=== PATIENT | female | born 1935 | race Caucasian/White ===

== ENCOUNTER 2017-03-04 11:47 | Inpatient (IN) | payer MEDICARE, OTHER ==
[~2017-03-04] VITALS: Ht 152.4 cm; Wt 56.2 kg
--- NOTE | ~2017-03-04 | CN ---
PATIENT NAME:CAPRICE KONG MEDICAL RECORD: [id number] : 31 LOCATION:D. D.2135 ADMIT DATE: 03/04/17 ACCOUNT: [id number] CONSULTING PHYSICIAN: DANIELA BELLE MD REFERRING PHYSICIAN: NATHALY JONES MD, TASHA K 03/05/17 0816: Chief Complaint - AFIB Objective Data History of Present Illness: 82 YEAR OLD FEMALE W HISTORY OF AFIB RECENTLY STARTED ON CORDARONE/XARELTO. ACCORDING TO HER DAUGHTER SHE HAS BEEN ON XARELTO SINCE 02/02/17. SHE HAS SEEN DR CHAUHAN IN CLINIC FOR HER AFIB. HER CORDARONE WAS INCREASED TO TWICE A DAY DOSING ALONG W METOPROLOL FOR RATE CONTROL BUT PATIENT BECAME WEAK AND DAUGHTER FELT IT WAS TOO BIG A DOSE OF CORDARONE SO SHE DECREASED IT TO ONCE A DAY AGAIN. SHE PRESENTED TO ED W WORSENING SOB/COUGH AND TACHYCARDIA. SHE WAS NOTED TO HAVE RML PNEUMONIA AND AFIB W RATE 138. WE HAVE BEEN CONSULTED FOR MEDICAL RECOMMENDATIONS. Neurological Hx: WEAKNESS EENT Hx: CATARACTS, GLASSES Endocrine Hx: HEPATITIS Cardiovascular Hx: HTN, CHF, ATRIAL FIB Respiratory Hx: PNEUMONIA Cancer Hx: KIDNEY Immune Disorders: NONE Gastrointestinal Hx: ACID REFLUX Allergies Coded Allergies: digoxin (. 03/04/17) ibuprofen (From ADVIL) (. 03/04/17) naproxen (From ALEVE) (. 03/04/17) Medications Reported Medications Calcium Carbonate/Vitamin D3 (Calcium 250 MG + VIT D TB) 250 MG PO DAILY Calcium Carb/Vit D3 600 MG/400 IU (Calcium 600MG Plus Vitamin D) 1 TAB PO DAILY Rivaroxaban (XARELTO) 20 MG PO DAILY@1700 Metoprolol Tartrate 25 MG PO DAILY Amiodarone (Pacerone) 100 MG PO DAILY Family Hx Parent: CARDIOVASCULAR DISEASE, DIABETES Sibling: CARDIOVASCULAR DISEASE Natural Child: NONE KNOWN Social History Smoking Status: NEVER TOBACCO USER Alcohol: No Recreational Drug Use: No CONSULT REPORT [id number] DILANCAPRICE Review of Systems Review of Systems GEN fatigue, weakness MAINTENANCE MGR neg headache, neg dizziness CV chest pain, palpitations, orthopnea ID chills GI neg nausea, neg abdominal pain neg weber HEME neg hemoptysis, neg hematuria ENDO neg thirsty, neg sweaty Skin Warm, Dry, Intact Pulm SOB, Cough, Sputums Musc/skel neg pain BMI: 21.04138 Physical Exam - Vital Signs Date Time Temp Pulse Resp B/P B/P Pulse O2 O2 Flow FiO2 Mean Ox Delivery Rate 03/05 0743 99 03/05 0739 97.5 90 16 88/60 99 NC 3 03/05 0454 97.3 100 AH 28 100/62 96 03/05 0103 97.3 120 CH 30 86/45 98 2 03/04 2153 97 General Appearance: alert, awake HEENT: pupils reactive to light, ex. occ. movements intact Neck: full range of motion, no JVD Cardiovascular Assessment: normal cap refill, irregular rate and rhythm, irregularly irregular Peripheral Pulses: Rt Brachial present, Lt Brachial present, Rt Radial present, Lt Radial present Resp Assessment: no acute distress, wheezes, rales Abdomen/GI Assessment: soft, nontender, normal bowel sounds Neur/MAINTENANCE MGR: alert Extremity Assessment: normal inspection, no edema Skin: Warm, Dry, Intact NUTRITION: Diet Plan - 1.AFIB- ON CORDARONE/METOPROLOL /XARELTO 2.RML PNEUMONIA 3.HTN-BP LIABLE ECHO PENDING , DR BELLE/MARY [facility] CONSULT REPORT [id number] CAPRICE KONG TROY R 03/05/17 0845: Plan - At this point I would recommend continued rate control pt's rate is relatively physiologic at this point check echo for left atrial size if we have continued difficulty with rate control may consider cardioversion given the rate is mostly controlled would not likely provide further hemo support at this point although creat is 2.2 a small iv dose dig may be helpful if needed will not at this point, but consider if bp still low would mildly hydrate at this point to see if helps with bp possibly early sepsis at 0834 at 0848 03/08/2017 Copied from P.Doc documentation, mayela. DANIELA BELLE MD at 1252 CC: [id number] DICTATION DATE: 03/05/17 0816 PARKER: MORGAN 03/08/17 1018 ADM IN [facility] [address] [place] [address]
--- NOTE | ~2017-03-04 | EC ---
PATIENT:CAPRICE KONG DATE OF SERVICE: 03/04/17 SEX: F MEDICAL RECORD: [id number] DATE OF : 31 LOCATION:D.M2 D.213 AGE OF PATIENT: 82 ADMISSION DATE: 03/04/17 REFERRING PHYSICIAN: INTERPRETING PHYSICIAN: DANIELA BELLE MD ECHOCARDIOGRAM REPORT ECHO CHARGES 4 ECHO COMPLETE CLINICAL DIAGNOSIS: PULMONARY EDEMA ECHOCARDIOGRAPHIC MEASUREMENTS (adult normal given) AC root (d.<3.7cm) 2.9 cm LV Septum d (<1.2 cm> 0.7 cm Valve Excursion 1.8 cm LV Septum (systole) 1.3 cm Left Atria (s.<4.0cm> 4.9 cm LVPW d(<1.2cm) 0.9 cm RV (d.<2.3cm) 3.2 cm LVPW (sytole) 1.2 cm LV diastole(<5.6CM) 4.1 cm MV E-F(>70mm/sec) cm LV systole 2.9 cm LVOT Diameter 1.9 cm MV exc.(>10mm) cm Est.ejection fraction (50-75%) % Pericardial Effusion N DOPPLER: LVIT cm/sec A cm/sec E 92.0 cm/sec LA cm/sec RVSP 59.0 mmHg LVOT 53.0 cm/sec AOP1/2T 495.0m/s Asc. Ao 104 cm/sec RVOT 49.0 cm/sec RA cm/sec PA 66.0 cm/sec AV Gradient Peak 4.3 mmHg AV Mean 1.9 mmHg AV Area 1.4 cm MV Gradient Peak 7.5 mmHg MV Mean 2.3 mmHg MV Area cm COMMENTS: Loan Counselor: Kalie HAYESOE Adhesive Bandage Making Operator: 4 Dr. Belle TAPE# PACS DATE OF SERVICE: 03/05/2017 PROCEDURE: Transthoracic echocardiogram. FINDINGS: 1. The basilar portions of the left ventricle are preserved. There is normal left ventricular mass. The overall function is difficult to gauge because limited views of the endocardium. It appears there is anterior apical and inferior apical hypokinesis with preserved mid and basilar segments could be consistent with a prior infarction or possible apical ballooning syndrome. The ECHOCARDIOGRAM REPORT [id number] CAPRICE KONG overall ejection fraction is 25% to 30%. 2. The left atrium is severely dilated at 4.9 cm. 3. The aortic valve is sclerotic without stenosis and mild aortic regurgitation. 4. The mitral valve has mild to moderate mitral regurgitation, structurally appears to be normal, was not well visualized. 5. Tricuspid valve has moderate to severe tricuspid regurgitation. RVSP is 60 to 65 mmHg. 6. The right ventricle is dilated. 7. The right atrium is dilated. CONCLUSIONS: The patient has evidence of either an apical ballooning syndrome or potentially a prior infarction. Overall, ejection fraction is 25% to 30%. There is evidence of pulmonary hypertension and severe tricuspid regurgitation. TRANSINT:[id number] Voice Confirmation ID: [id number] DOCUMENT ID: [id number] 03/08/2017 Edited to correct date of service, dm. DANIELA BELLE MD at 1208 CC: [id number] DICTATION DATE: 03/06/17 1110 POCKET CLOSER: 03/06/17 1248 DIS IN 03/14/17 [place] [id number] [place] [address]
[2017-03-04 12:24] LABS: ALBUMIN 2.9 g/dL (3.4-5.0); ANION GAP 16.5 mmol/L (8-16); BILIRUBIN - TOTAL 0.64 mg/dL (0.2-1.3); CALCIUM 9.5 mg/dL (8.5-10.1); CREATININE - SERUM 1.5 mg/dL (0.6-1.3); POTASSIUM - SERUM 5.5 mmol/L (3.5-5.1); PROTEIN - SERUM 6.6 g/dL (6.4-8.2)
[2017-03-04 12:29] LABS: HEMATOCRIT 44.3 % (36.0-48.0); HEMOGLOBIN 14.3 g/dL (12-16); MCH 25.6 pg (26.0-34.0); MCHC 32.3 g/dL (31.0-37.0); MCV 79.2 fL (80.0-100.0); MEAN PLATELET VOLUME 10.7 fL (7.4-10.4); PLATELET COUNT 292 10x3/uL (130-400); RBC 5.59 10x6/uL (4.00-5.40); RDW 16.7 % (11.5-14.5); WBC 28.3 10x3/uL (4.8-10.8)
[2017-03-04 12:43] LABS: TROPONIN-I 0.241 ng/mL (0.000-0.060)
[2017-03-04 12:48] LABS: BASOPHILS 1 % (0-2); LYMPHOCYTES 51 % (15-50); MONOCYTES 4 % (2-11); NEUTROPHILS 43 % (40-80); PLATELET ESTIMATE NORMAL
[2017-03-04 13:45] LABS: APPEARANCE CLOUDY (CLEAR); BILIRUBIN NEGATIVE (NEGATIVE); COLOR DK YELLOW (YELLOW); GLUCOSE NEGATIVE (NEGATIVE); KETONE NEGATIVE (NEGATIVE); NITRITE NEGATIVE (NEGATIVE); PROTEIN 3+ mg/dL (NEGATIVE); SPECIFIC GRAVITY 1.025 (1.005-1.020); UROBILINOGEN NORMAL (NORMAL)
[2017-03-04 13:50] LABS: BACTERIA MODERATE /hpf (NONE SEEN); EPITHELIAL CELLS 0-5 /hpf (0-5); HYALINE CAST 0-5 /lpf (NONE SEEN); MUCUS <1+ /lpf (NONE SEEN)
[2017-03-04] MEDS ORDERED: CALCIUM 250+D T1 TAB PO (19:04)
[2017-03-04] MEDS ORDERED: CALCIUM 600+D T1 TA1 PO (19:05)
[2017-03-04] MEDS ORDERED: XARELTO20 MG PO (19:06)
[2017-03-04] MEDS ORDERED: PACERONE100 MG PO (19:08)
[2017-03-04] MEDS ORDERED: METOPROLOL TART25 MG PO (19:08)
[2017-03-05 01:03] VITALS: BP 86/45
[2017-03-05 04:23] VITALS: BMI 21.5
[2017-03-05 04:54] VITALS: BP 100/62
[2017-03-05 06:02] LABS: BASOPHILS 0.1 % (0-2); EOSINOPHILS 0 % (0-7); HEMATOCRIT 36.8 % (36.0-48.0); HEMOGLOBIN 11.8 g/dL (12-16); IMMATURE GRANULOCYTES 0.6 % (0-5); LYMPHOCYTES 42.1 % (15-50); MCH 25.3 pg (26.0-34.0); MCHC 32.1 g/dL (31.0-37.0); MCV 78.8 fL (80.0-100.0); MEAN PLATELET VOLUME 10.2 fL (7.4-10.4); MONOCYTES 11.5 % (2-11); NEUTROPHILS 45.7 % (40-80); PLATELET COUNT 239 10x3/uL (130-400); RBC 4.67 10x6/uL (4.00-5.40); RDW 16.6 % (11.5-14.5); WBC 27.2 10x3/uL (4.8-10.8)
[2017-03-05 07:05] LABS: ALBUMIN 2.3 g/dL (3.4-5.0); ANION GAP 15.6 mmol/L (8-16); BILIRUBIN - TOTAL 0.5 mg/dL (0.2-1.3); CALCIUM 8.2 mg/dL (8.5-10.1); CARBON DIOXIDE 24.2 mmol/L (21.0-32.0); CREATININE - SERUM 2.1 mg/dL (0.6-1.3); POTASSIUM - SERUM 4.8 mmol/L (3.5-5.1); PROTEIN - SERUM 5.5 g/dL (6.4-8.2)
[2017-03-05 07:39] VITALS: BP 88/60
[2017-03-05 11:49] VITALS: BP 96/63
[2017-03-05 14:23] VITALS: BMI 21.4
[2017-03-05 19:00] VITALS: BP 111/77
[2017-03-06] VITALS (8 sets, daily range): BP systolic 98–120; BP diastolic 61–70; Ht 152.4 cm; Wt 56.2 kg
[2017-03-06 06:51] LABS: BASOPHILS 0.1 % (0-2); HEMATOCRIT 34.5 % (36.0-48.0); HEMOGLOBIN 10.9 g/dL (12-16); IMMATURE GRANULOCYTES 0.5 % (0-5); LYMPHOCYTES 41.6 % (15-50); MCH 25.2 pg (26.0-34.0); MCHC 31.6 g/dL (31.0-37.0); MCV 79.9 fL (80.0-100.0); MEAN PLATELET VOLUME 10.3 fL (7.4-10.4); MONOCYTES 11.6 % (2-11); NEUTROPHILS 45.2 % (40-80); PLATELET COUNT 223 10x3/uL (130-400); RBC 4.32 10x6/uL (4.00-5.40); RDW 16.7 % (11.5-14.5)
[2017-03-06 06:56] LABS: ALBUMIN 2.2 g/dL (3.4-5.0); ANION GAP 16.7 mmol/L (8-16); BILIRUBIN - TOTAL 0.3 mg/dL (0.2-1.3); CALCIUM 8.3 mg/dL (8.5-10.1); CARBON DIOXIDE 23.8 mmol/L (21.0-32.0); CREATININE - SERUM 2.2 mg/dL (0.6-1.3); PHOSPHOROUS 5.6 mg/dL (2.5-4.9); POTASSIUM - SERUM 4.5 mmol/L (3.5-5.1); PROTEIN - SERUM 5.4 g/dL (6.4-8.2); VANCOMYCIN - TROUGH 15.5 ug/mL (10.0-20.0)
[2017-03-06 07:00] LABS: WBC 16.2 10x3/uL (4.8-10.8)
[2017-03-06 15:30] LABS: CREATININE - URINE 178.6 mg/dL (30-125); POTASSIUM - URINE 89.7 MMOL/L (12.0-62.0); PROTEIN - URINE 110.3 mg/dL (0.0-11.9)
[2017-03-07] VITALS: BP 80/59
[2017-03-07 04:00] VITALS: BP 100/60
[2017-03-07 06:28] LABS: BASOPHILS 0.1 % (0-2); EOSINOPHILS 0.7 % (0-7); HEMATOCRIT 36.4 % (36.0-48.0); HEMOGLOBIN 11.4 g/dL (12-16); IMMATURE GRANULOCYTES 0.4 % (0-5); LYMPHOCYTES 57.5 % (15-50); MCH 25.3 pg (26.0-34.0); MCHC 31.3 g/dL (31.0-37.0); MCV 80.7 fL (80.0-100.0); MEAN PLATELET VOLUME 10.7 fL (7.4-10.4); MONOCYTES 8.5 % (2-11); NEUTROPHILS 32.8 % (40-80); RBC 4.51 10x6/uL (4.00-5.40); RDW 16.9 % (11.5-14.5); WBC 19.3 10x3/uL (4.8-10.8)
[2017-03-07 06:52] LABS: ALBUMIN 2.3 g/dL (3.4-5.0); ANION GAP 13.9 mmol/L (8-16); BILIRUBIN - TOTAL 0.44 mg/dL (0.2-1.3); CALCIUM 8.6 mg/dL (8.5-10.1); CARBON DIOXIDE 23.7 mmol/L (21.0-32.0); CREATININE - SERUM 1.9 mg/dL (0.6-1.3); MAGNESIUM - SERUM 2.2 mg/dL (1.8-2.4); PHOSPHOROUS 4.5 mg/dL (2.5-4.9); POTASSIUM - SERUM 4.6 mmol/L (3.5-5.1); PROTEIN - SERUM 5.7 g/dL (6.4-8.2); VANCOMYCIN - RANDOM 17.1 ug/mL (10.0-20.0)
[2017-03-07 06:53] LABS: PLATELET COUNT 280 10x3/uL (130-400)
[2017-03-07 11:01] VITALS: BP 117/66
[2017-03-07 12:16] LABS: OSMOLALITY - URINE 619 (())
[2017-03-07 13:41] VITALS: BP 94/64
[2017-03-07 17:40] VITALS: BP 96/56
[2017-03-07 19:00] VITALS: BP 99/52
[2017-03-08 04:00] VITALS: BP 112/65
[2017-03-08 06:18] LABS: BASOPHILS 0.2 % (0-2); EOSINOPHILS 2.5 % (0-7); HEMATOCRIT 36.3 % (36.0-48.0); HEMOGLOBIN 11.3 g/dL (12-16); IMMATURE GRANULOCYTES 0.7 % (0-5); LYMPHOCYTES 53.6 % (15-50); MCHC 31.1 g/dL (31.0-37.0); MCV 80.3 fL (80.0-100.0); PLATELET COUNT 222 10x3/uL (130-400); RBC 4.52 10x6/uL (4.00-5.40); RDW 16.7 % (11.5-14.5); WBC 15.4 10x3/uL (4.8-10.8)
[2017-03-08 06:44] LABS: ALBUMIN 2.3 g/dL (3.4-5.0); ANION GAP 14.2 mmol/L (8-16); BILIRUBIN - TOTAL 0.35 mg/dL (0.2-1.3); CALCIUM 8.6 mg/dL (8.5-10.1); CARBON DIOXIDE 22.7 mmol/L (21.0-32.0); CREATININE - SERUM 1.6 mg/dL (0.6-1.3); MAGNESIUM - SERUM 2.2 mg/dL (1.8-2.4); PHOSPHOROUS 3.8 mg/dL (2.5-4.9); POTASSIUM - SERUM 4.9 mmol/L (3.5-5.1); PROTEIN - SERUM 5.1 g/dL (6.4-8.2)
[2017-03-08 08:47] VITALS: BP 113/72
[2017-03-08 12:33] VITALS: BP 97/74
[2017-03-08 16:28] VITALS: BP 94/70
[2017-03-08 21:44] VITALS: BP 94/68
[2017-03-09 01:15] VITALS: BP 100/64
[2017-03-09 05:58] VITALS: BP 117/70
[2017-03-09 06:22] LABS: BASOPHILS 0.3 % (0-2); EOSINOPHILS 2.1 % (0-7); HEMATOCRIT 37.7 % (36.0-48.0); HEMOGLOBIN 11.8 g/dL (12-16); IMMATURE GRANULOCYTES 2.4 % (0-5); LYMPHOCYTES 53.8 % (15-50); MCH 25.2 pg (26.0-34.0); MCHC 31.3 g/dL (31.0-37.0); MCV 80.4 fL (80.0-100.0); MONOCYTES 8.4 % (2-11); PLATELET COUNT 287 10x3/uL (130-400); RBC 4.69 10x6/uL (4.00-5.40); RDW 16.9 % (11.5-14.5); WBC 22.3 10x3/uL (4.8-10.8)
[2017-03-09 06:29] LABS: ALBUMIN 2.2 g/dL (3.4-5.0); ANION GAP 13.3 mmol/L (8-16); BILIRUBIN - TOTAL 0.4 mg/dL (0.2-1.3); CALCIUM 8.5 mg/dL (8.5-10.1); CARBON DIOXIDE 21.6 mmol/L (21.0-32.0); CREATININE - SERUM 1.4 mg/dL (0.6-1.3); POTASSIUM - SERUM 4.9 mmol/L (3.5-5.1); PROTEIN - SERUM 5.4 g/dL (6.4-8.2)
[2017-03-09 08:06] VITALS: BP 106/71
[2017-03-09 11:18] VITALS: BP 98/75
[2017-03-09 14:20] LABS: HISTOPLASMA GAL MANNAN AG SER <0.5 (<0.5 ng/mL)
[2017-03-09 15:42] VITALS: BP 97/60
[2017-03-09 19:00] VITALS: BP 119/72
[2017-03-10 04:00] VITALS: BP 111/67
[2017-03-10 07:01] LABS: HEMATOCRIT 39.7 % (36.0-48.0); HEMOGLOBIN 12.1 g/dL (12-16); MCH 24.4 pg (26.0-34.0); MCHC 30.5 g/dL (31.0-37.0); PLATELET COUNT 288 10x3/uL (130-400); RBC 4.96 10x6/uL (4.00-5.40); RDW 17.9 % (11.5-14.5); WBC 26.8 10x3/uL (4.8-10.8)
[2017-03-10 07:11] LABS: ALBUMIN 2.3 g/dL (3.4-5.0); ANION GAP 13.5 mmol/L (8-16); BILIRUBIN - TOTAL 0.36 mg/dL (0.2-1.3); CALCIUM 8.5 mg/dL (8.5-10.1); CARBON DIOXIDE 24.1 mmol/L (21.0-32.0); CREATININE - SERUM 1.6 mg/dL (0.6-1.3); POTASSIUM - SERUM 4.6 mmol/L (3.5-5.1); PROTEIN - SERUM 5.6 g/dL (6.4-8.2)
[2017-03-10 08:18] LABS: EOSINOPHILS 3 % (0-7); LYMPHOCYTES 50 % (15-50); MONOCYTES 3 % (2-11); NEUTROPHILS 39 % (40-80); PLATELET ESTIMATE NORMAL; SMUDGE CELLS 1+
[2017-03-10 08:25] VITALS: BP 101/72
[2017-03-10 11:43] VITALS: BP 111/78
[2017-03-10 15:49] VITALS: BP 124/76
[2017-03-10 19:00] VITALS: BP 122/70
[2017-03-11 04:00] VITALS: BP 136/70
[2017-03-11 05:39] LABS: BASOPHILS 0.4 % (0-2); EOSINOPHILS 1.4 % (0-7); HEMATOCRIT 37.1 % (36.0-48.0); HEMOGLOBIN 11.8 g/dL (12-16); IMMATURE GRANULOCYTES 4.5 % (0-5); LYMPHOCYTES 51.8 % (15-50); MCH 25.3 pg (26.0-34.0); MCHC 31.8 g/dL (31.0-37.0); MCV 79.4 fL (80.0-100.0); MEAN PLATELET VOLUME 9.9 fL (7.4-10.4); MONOCYTES 6.9 % (2-11); PLATELET COUNT 279 10x3/uL (130-400); RBC 4.67 10x6/uL (4.00-5.40); RDW 17.2 % (11.5-14.5); WBC 28.7 10x3/uL (4.8-10.8)
[2017-03-11 05:57] LABS: ALBUMIN 2.2 g/dL (3.4-5.0); ANION GAP 13.2 mmol/L (8-16); BILIRUBIN - TOTAL 0.42 mg/dL (0.2-1.3); CARBON DIOXIDE 24.2 mmol/L (21.0-32.0); CREATININE - SERUM 1.5 mg/dL (0.6-1.3); POTASSIUM - SERUM 4.4 mmol/L (3.5-5.1); PROTEIN - SERUM 5.4 g/dL (6.4-8.2)
[2017-03-11 07:00] VITALS: BP 104/65
[2017-03-11 21:39] VITALS: BP 112/52
[2017-03-12 05:15] LABS: BASOPHILS 0.4 % (0-2); HEMATOCRIT 38.3 % (36.0-48.0); HEMOGLOBIN 12.2 g/dL (12-16); IMMATURE GRANULOCYTES 4.1 % (0-5); LYMPHOCYTES 54.3 % (15-50); MCH 25.1 pg (26.0-34.0); MCHC 31.9 g/dL (31.0-37.0); MCV 78.8 fL (80.0-100.0); MEAN PLATELET VOLUME 9.8 fL (7.4-10.4); NEUTROPHILS 33.2 % (40-80); PLATELET COUNT 301 10x3/uL (130-400); RBC 4.86 10x6/uL (4.00-5.40); RDW 17.2 % (11.5-14.5); WBC 36.7 10x3/uL (4.8-10.8)
[2017-03-12 05:29] LABS: ALBUMIN 2.2 g/dL (3.4-5.0); ANION GAP 13.8 mmol/L (8-16); BILIRUBIN - TOTAL 0.4 mg/dL (0.2-1.3); CALCIUM 8.9 mg/dL (8.5-10.1); CARBON DIOXIDE 23.6 mmol/L (21.0-32.0); CREATININE - SERUM 1.5 mg/dL (0.6-1.3); POTASSIUM - SERUM 4.4 mmol/L (3.5-5.1); PROTEIN - SERUM 5.7 g/dL (6.4-8.2)
[2017-03-12 08:56] VITALS: BP 115/72
[2017-03-12 12:15] VITALS: BP 108/79
[2017-03-12 16:19] VITALS: BP 118/76
[2017-03-12 19:00] VITALS: BP 129/84
[2017-03-13 04:00] VITALS: BP 93/49
[2017-03-13 06:13] LABS: BASOPHILS 0.2 % (0-2); EOSINOPHILS 0.6 % (0-7); HEMATOCRIT 39.4 % (36.0-48.0); HEMOGLOBIN 12.3 g/dL (12-16); IMMATURE GRANULOCYTES 3.6 % (0-5); MCH 24.3 pg (26.0-34.0); MCHC 31.2 g/dL (31.0-37.0); MCV 77.7 fL (80.0-100.0); MEAN PLATELET VOLUME 10.3 fL (7.4-10.4); NEUTROPHILS 34.6 % (40-80); PLATELET COUNT 294 10x3/uL (130-400); RBC 5.07 10x6/uL (4.00-5.40); RDW 17.2 % (11.5-14.5); WBC 39.5 10x3/uL (4.8-10.8)
[2017-03-13 06:32] LABS: ALBUMIN 2.1 g/dL (3.4-5.0); BILIRUBIN - TOTAL 0.52 mg/dL (0.2-1.3); CALCIUM 8.9 mg/dL (8.5-10.1); CARBON DIOXIDE 24.2 mmol/L (21.0-32.0); CREATININE - SERUM 1.8 mg/dL (0.6-1.3); POTASSIUM - SERUM 4.2 mmol/L (3.5-5.1); PROTEIN - SERUM 5.5 g/dL (6.4-8.2)
[2017-03-13 08:23] VITALS: BP 114/60
[2017-03-13 11:35] VITALS: BP 86/52
[2017-03-13 15:00] LABS: BASOPHILS 0.3 % (0-2); EOSINOPHILS 0.2 % (0-7); HEMATOCRIT 40.3 % (36.0-48.0); HEMOGLOBIN 12.7 g/dL (12-16); IMMATURE GRANULOCYTES 3.6 % (0-5); LYMPHOCYTES 57.7 % (15-50); MCH 24.9 pg (26.0-34.0); MCHC 31.5 g/dL (31.0-37.0); MCV 78.9 fL (80.0-100.0); MEAN PLATELET VOLUME 10.2 fL (7.4-10.4); MONOCYTES 5.8 % (2-11); NEUTROPHILS 32.4 % (40-80); PLATELET COUNT 279 10x3/uL (130-400); RBC 5.11 10x6/uL (4.00-5.40); RDW 17.2 % (11.5-14.5); WBC 40.7 10x3/uL (4.8-10.8)
[2017-03-13 15:25] VITALS: BP 103/60
[2017-03-13 15:50] LABS: CREATINE KINASE 15 UL (21-215)
[2017-03-13 16:08] LABS: TROPONIN-I 0.061 ng/mL (0.000-0.060)
[2017-03-13 18:10] LABS: AEROBE ID Final report (())
[2017-03-13 20:50] LABS: CKMB 3.9 U/L (0.0-3.6); CREATINE KINASE 16 UL (21-215)
[2017-03-13 20:55] LABS: BASOPHILS 0.2 % (0-2); EOSINOPHILS 0.2 % (0-7); HEMATOCRIT 41.2 % (36.0-48.0); HEMOGLOBIN 13.3 g/dL (12-16); IMMATURE GRANULOCYTES 3.6 % (0-5); LYMPHOCYTES 59.7 % (15-50); MCH 25.1 pg (26.0-34.0); MCHC 32.3 g/dL (31.0-37.0); MCV 77.9 fL (80.0-100.0); MONOCYTES 6.6 % (2-11); NEUTROPHILS 29.7 % (40-80); PLATELET COUNT 270 10x3/uL (130-400); RBC 5.29 10x6/uL (4.00-5.40); RDW 17.3 % (11.5-14.5); WBC 41.7 10x3/uL (4.8-10.8)
[2017-03-13 21:01] LABS: TROPONIN-I 0.105 ng/mL (0.000-0.060)
[2017-03-13 22:25] VITALS: BP 104/63
[2017-03-14 01:27] VITALS: BP 86/65
[2017-03-14 03:36] LABS: BASOPHILS 0.3 % (0-2); EOSINOPHILS 0.2 % (0-7); HEMATOCRIT 40.2 % (36.0-48.0); HEMOGLOBIN 12.9 g/dL (12-16); IMMATURE GRANULOCYTES 4.1 % (0-5); LYMPHOCYTES 60.2 % (15-50); MCH 25.5 pg (26.0-34.0); MCHC 32.1 g/dL (31.0-37.0); MCV 79.4 fL (80.0-100.0); MEAN PLATELET VOLUME 10.2 fL (7.4-10.4); MONOCYTES 5.6 % (2-11); NEUTROPHILS 29.6 % (40-80); PLATELET COUNT 269 10x3/uL (130-400); RBC 5.06 10x6/uL (4.00-5.40); RDW 17.5 % (11.5-14.5); WBC 45.3 10x3/uL (4.8-10.8)
[2017-03-14 04:05] LABS: ALBUMIN 2.2 g/dL (3.4-5.0); ALKALINE PHOSPHATASE 137 U/L (46-116); ALT (SGPT) 112 U/L (10-68); BILIRUBIN - TOTAL 0.76 mg/dL (0.2-1.3); CALCIUM 9.2 mg/dL (8.5-10.1); CARBON DIOXIDE 22.2 mmol/L (21.0-32.0); CHLORIDE - SERUM 105 mmol/L (98-107); CKMB 4.2 U/L (0.0-3.6); CREATINE KINASE 17 UL (21-215); GLUCOSE 110 mg/dL (74-106); PROTEIN - SERUM 5.8 g/dL (6.4-8.2); SODIUM 140 mmol/L (136-145)
[2017-03-14 04:06] LABS: CALC OSMOLALITY 296 mosm/kg (275-300); CREATININE - SERUM 2.7 mg/dL (0.6-1.3); TROPONIN-I 0.182 ng/mL (0.000-0.060); UREA NITROGEN 59 mg/dL (7-18); eGFR NON AFRICAN AMERICAN 18 mL/min (90-120)
[2017-03-14 06:28] VITALS: BP 97/40
[2017-03-14 08:16] VITALS: BP 113/66
== END 2017-03-14 12:07 | DRG 871 ==
LOC: EDBD 11:47 → D.ER 11:47 → D.M2 15:01 → D.SDCHOLD 16:11 → D.M2 17:18
PROVIDERS: Family Medicine; Internal Medicine Pulmonary Disease; Student in an Organized Health Care Education/Training Program
PROC: 05HC33Z Insertion of Infusion Device into Left Basilic Vein, Percutaneous Approach (ICD-10-PCS; principal; 2017-03-12)
PROC: B54NZZA Ultrasonography of Left Upper Extremity Veins, Guidance (ICD-10-PCS; 2017-03-12)
DX: A41.9 Sepsis, unspecified organism (principal); J15.6 Pneumonia due to other Gram-negative bacteria; J15.212 Pneumonia due to Methicillin resistant Staphylococcus aureus; I50.23 Acute on chronic systolic (congestive) heart failure; I13.0 Hypertensive heart and chronic kidney disease with heart failure and stage 1 through stage 4 chronic kidney disease, or unspecified chronic kidney disease; N17.9 Acute kidney failure, unspecified; C91.12 Chronic lymphocytic leukemia of B-cell type in relapse; J84.9 Interstitial pulmonary disease, unspecified; I48.91 Unspecified atrial fibrillation; N18.9 Chronic kidney disease, unspecified; K21.9 Gastro-esophageal reflux disease without esophagitis; J43.9 Emphysema, unspecified; J31.0 Chronic rhinitis; Z79.01 Long term (current) use of anticoagulants; E87.5 Hyperkalemia; E88.09 Other disorders of plasma-protein metabolism, not elsewhere classified; I08.1 Rheumatic disorders of both mitral and tricuspid valves; I27.20 Pulmonary hypertension, unspecified; D64.9 Anemia, unspecified; K76.0 Fatty (change of) liver, not elsewhere classified